=== PATIENT | male | born 2000 | race Two or more races ===

== ENCOUNTER 2021-08-10 21:25 | Emergency (ER) | payer SELFPAY ==
[~2021-08-10] VITALS: Ht 170.2 cm; Wt 73.5 kg
[2021-08-10] MEDS ORDERED: HYDR28CR TP (22:55)
--- NOTE | 2021-08-10 22:55 | PHYS DOC ---
Past Medical History Past Surgical History: No Surgical History Smoking Status: Never Smoker Alcohol Use: Occasionally General Adult EDM: Chief Complaint: SKIN RASH/ABSCESS HPI: HPI: Patient is a 21 year old male presents to the emergency department complaining of a rash that started on his anterior chest 3 days ago, noticed it progressed to his upper back next day, and then noticed today that it had progressed downwards to his lower abdomen and low back area. Patient reports minor off and on itching, stating that "it really does not itch but it looks like it should ". Patient denies having this rash before. Denies recent illnesses. Denies history of sexually transmitted diseases. Denies rashes to his genitals buttocks or lower extremities. Patient reports he placed eczema lotion on the rash and did not seem to help. Patient denies eating new foods, trying new soaps or new products. Patient denies other people in his home with similar symptoms, denies other physical complaints or physical concerns. Review of Systems: Review of Systems: 14 body systems of review of systems have been reviewed. See HPI for pertinent positives and negative responses, otherwise all other systems are negative, nonpertinent or noncontributory. Constitutional: Negative except as outlined in HPI above. Skin: Negative except as outlined in HPI above. Eyes: Negative except as outlined in HPI above. HENT: Negative except as outlined in HPI above. Respiratory: Negative except as outlined in HPI above. Cardiovascular: Negative except as outlined in HPI above. GI: Negative except as outlined in HPI above. : Negative except as outlined in HPI above. Musculoskeletal: Negative except as outlined in HPI above. Integument: Negative except as outlined in HPI above. Neurologic: Negative except as outlined in HPI above. Endocrine: Negative except as outlined in HPI above. Lymphatic: Negative except as outlined in HPI above. Psychiatric: Negative except as outlined in HPI above. Heart Score: C/O Chest Pain: No Risk Factors: Risk Factors: DM, Current or recent (<one month) smoker, HTN, HLP, family history of CAD, obesity. Risk Scores: Score 0 - 3: 2.5% MACE over next 6 weeks - Discharge Home Score 4 - 6: 20.3% MACE over next 6 weeks - Admit for Clinical Observation Score 7 - 10: 72.7% MACE over next 6 weeks - Early Invasive Strategies Physical Exam: PE: Constitutional: Well developed, well nourished, no acute distress, non-toxic appearance. 21-year-old male in no apparent distress. HENT: Normocephalic, atraumatic. Eyes: Conjunctiva normal, no discharge. Neck: Normal range of motion, no stridor. Cardiovascular: No cyanosis appreciated, distal cap refill less than 2 seconds. Lungs & Thorax: Patient is in no respiratory distress, no audible adventitious lung sounds appreciated. Abdomen: Nontender, no abnormalities noted. Skin: Warm, dry, no erythema, patient has bilateral symmetric macular papular type rash and Kinsey tree pattern of anterior and posterior trunk, bilateral upper extremities extending to mid forearm full circumferential. No appreciable heralds patch. The neck face scalp and lower extremities are spared. There are no rash on hands or feet. Back: No tenderness, no deformities. Extremities: No tenderness, no cyanosis, no clubbing, ROM intact, no edema. Neurologic: Alert and oriented X 3, normal motor function, normal sensory function, no focal deficits noted. Psychologic: Affect normal, judgement normal, mood normal. Current Patient Data: Vital Signs: Vital Signs Date Time Temp Pulse Resp B/P (MAP) Pulse Ox O2 Delivery O2 Flow Rate FiO2 08/10/21 21:40 98.4 95 18 148/65 (92) 99 Room Air 98.4 EKG: EKG: [] Radiology/Procedures: Radiology/Procedures: [] Course & Med Decision Making: Course & Med Decision Making Pertinent Labs and Imaging studies reviewed. (See chart for details) 21-year-old male, vital signs reviewed, presents to the emergency department concerning rash for the past 3 days. Physical presentation consistent with pityriasis rosea, discussed findings with patient, patient does complain of intermittent pruritus, will prescribe topical steroid for itching complaint. Discussed with patient progression of this type of rash, follow-up with primary care or dermatology if worsening, or not resolving after 3 to 6 months. Patient gave verbal understanding of and is amenable to ED discharge planning. Discussed with the patient all findings and diagnostic testing as well as the need to follow-up with their primary care provider for further evaluation and treatment or return to the ED if any new or worsening symptoms. Strict return precautions were also discussed at length, the patient voiced understanding and agreement with the discharge planning. The patient was nontoxic in appearance, in no apparent distress, and hemodynamically stable at the time of disposition. Marenon Disclaimer: Sanjeev Disclaimer: This electronic medical record was generated, in whole or in part, using a voice recognition dictation system. Departure Departure Impression: Primary Impression: Pityriasis rosea-like skin eruption Disposition: HOME / SELF CARE / HOMELESS Condition: GOOD Patient Instructions: Pityriasis Rosea Additional Instructions: You were seen today for a skin rash has been going on for the past 3 days. The skin rash is very similar to pityriasis rosea. This rash is typically noncontagious and cumbersome as it may last up to 3 to 6 months. I have prescribed for you a ointment that you may use over the rash for itching. Please use as directed. Please follow-up with a orthopaedic surgeon if this rash is worsening, or not going away after 3 to 6 months. You may use any orthopaedic surgeon of your choice, however please consider using [facility] dermatology located at [id number] [place] [address] in [facility] 12/27/2008. Their telephone number is area code [phone]. Thank you for visiting our Emergency Department. It was a pleasure taking care of you today in the emergency department and we appreciate you trusting us with your care. If any additional problems come up don't hesitate to return to visit us. Please follow up with your primary care provider so they can plan additional care if needed and know about the problem that you had. If symptoms worsen come back to the Emergency Department. Any concerning symptoms that start such as chest pain, shortness of air, weakness or numbness on one side of the body, running high fevers or any other concerning symptoms return to the ER. Scripts Hydrocortisone (CORTIZONE-10) 28 Gm Cream..g. 28 GM TP DAILY for rash itching, #[address] on skin rash once daily for itching. Prov: RAVI JOYNER APRN 08/10/21 RAVI JOYNER APRN Aug 10, 2021 22:55
[2021-08-10 23:05] VITALS: BP 121/54
== END 2021-08-10 23:04 | disposition home or self-care (01) ==
LOC: ER 21:25
DX: L42 Pityriasis rosea (principal)
CPT/HCPCS: 99283